=== PATIENT | female | born 1995 | race Caucasian/White ===

== ENCOUNTER 2017-09-07 11:04 | Emergency (ER) | payer OTHER ==
[2017-09-07 11:10] VITALS: TEMP 98.2
--- NOTE | 2017-09-07 11:18 | EDPHY ---
H & P Stated Complaint: left knee pain starting a few days ago, getting worse, no trauma Time Seen by Provider: 09/07/17 11:17 HPI/ROS: HPI: This is a 21-year-old female who presents with Chief Complaint: left knee pain starting a few days ago, getting worse, no trauma Location: Left knee Quality: Pain Duration: Few days Signs and Symptoms: No bleeding, no radiation, no numbness, no weakness, no tingling, no incontinence, + decreased range of motion, + swelling, + pain Timing: Worsening Severity: Moderate Context: Patient is generally healthy, presents with a few days of left knee pain that started medially and then moved to the lateral region and accompanied by worsening swelling. Reports decreased range of motion due to the swelling and pain. Mobility has been difficult and she is using a cane to aid ambulation. Denies any trauma/injury/fall/calf tenderness. Patient reports that her family has bad knees. Denies paresthesias/skin color changes/warmth/ redness. She took Advil prior to arrival. Father is a local utility mechanic supervisor physician at [facility] and has knee immobilizers at home for her to use. Modifying Factors: Above Comment: ROS: see HPI Constitutional: No fever, no chills, no weight loss Eyes: No blurred vision Respiratory: No shortness of breath, no cough Cardiovascular: No chest pain Gastrointestinal: No nausea, no vomiting no diarrhea Genitourinary: No dysuria Extremities: No myalgias Neurologic: No weakness, no numbness Skin: No rashes Hematologic: No bruising, no bleeding MEDICAL/SURGICAL/SOCIAL HISTORY: Medical history: Generally healthy. Does not take any regular medications. Surgical history: left arm ortho sx Social history: Strong family support. CONSTITUTIONAL: Young adult white female, awake and alert, no obvious distress HEENT: Atraumatic and normocephalic, PERRL, EOMI. Tympanic membranes clear. Oropharynx clear, no exudate and moist pink mucosa. Airway patent. No lymphadenopathy. No meningismus. Cardiovascular: Normal S1/S2, regular rate, regular rhythm, without murmur rub or gallop. PULMONARY/CHEST: Symmetrical and nontender. Clear to auscultation bilaterally. Good air movement. No accessory muscle usage. ABDOMEN: Soft, nondistended, nontender, no rebound, no guarding, no peritoneal signs, no masses or organomegaly. No CVAT. EXTREMITIES: 2/2 DP and PT pulses, strength 5/5, left KNEE: Moderate suprapatellar effusion, + medial joint line tenderness and no lateral joint line tenderness, extension to 120, flexion to 90, pain with valgus exam but no pain with varus exam. No pain with anterior drawer or posterior drawer test. no deformities, no patellar hypermobility. no clubbing, no cyanosis or edema. NEUROLOGICAL: no focal neuro deficits. GCS 15. SKIN: Warm and dry, no erythema. no rash. Good capillary refill. Source: Patient Exam Limitations: No limitations - Personal History LMP (Females 10-55): Now Current Tetanus/Diphtheria Vaccine: Unsure Current Tetanus Diphtheria and Acellular Pertussis (TDAP): Unsure - Medical/Surgical History Hx Asthma: No Hx Chronic Respiratory Disease: No Hx Diabetes: No Hx Cardiac Disease: No Hx Renal Disease: No Hx Cirrhosis: No Hx Alcoholism: No Hx HIV/AIDS: No Hx Splenectomy or Spleen Trauma: No Other PMH: left arm ortho sx - Social History Smoking Status: Never smoked Constitutional: Initial Vital Signs Temperature (C) 36.8 C 09/07/17 11:07 Heart Rate 98 09/07/17 11:07 Respiratory Rate 20 09/07/17 11:07 Blood Pressure 136/82 H 09/07/17 11:07 O2 Sat (%) 96 09/07/17 11:07 O2 Delivery Mode Room Air Allergies/Adverse Reactions: No Known Allergies Allergy (Unverified 09/07/17 11:06) Home Medications: Medication Instructions Recorded [place] Carbonate 09/07/17 Microgestin 09/07/17 oxyCODONE/APAP 5/325 [Percocet 1 - 2 tab PO Q4H PRN #12 tab 09/07/17 5/325 (*)] Medical Decision Making - Diagnostics Imaging Results: Imaging Impressions Knee X-Ray 09/07/17 11:20 Impression: [place] knee joint effusion. Procedures: Procedure: Arthrocentesis. After verbal informed consent was obtained explaining the risks including but not limited to infection and bleeding a arthrocentesis was performed on the left knee. The patient was prepped and draped in the usual sterile fashion. The joint was not anesthetized. Approximately 85 mL of the clear yellow synovial fluid was obtained. Culture, Gram stain, cell count, crystal analysis was sent. There were no complications. Clean sterile dressing was applied. The procedure was performed by myself. ED Course/Re-evaluation: Left knee x-ray, and oral medications ordered Given Percocet x, ice pack applied No signs of neurovascular compromise/tenting of skin/compartment syndrome/ extremities and joints examined above and below area of concern and are neurovascularly intact/septic arthritis. X-ray my read shows no signs of fracture/dislocation, + moderate effusion Arthrocentesis performed; culture sent. Patient already has knee immobilizer; given crutches; rice; Ortho follow-up This patient was seen under the supervision of my secondary supervising physician. I evaluated care for this patient independently. Discussed this patient with who did not see the patient. Patient's presentation, labs/ imaging, treatment and plan of care were discussed with secondary supervising physician. Differential Diagnosis: Knee injury while including but not limited to fracture, ACL injury, contusion, muscular strain, and meniscus injury. - Data Points Laboratory Results: 09/07/17 13:00 Synovial Source Pending Synovial Color Pending Synovial Appearance Pending Synovial WBC Pending Synovial RBC Pending Synovial Crystals Pending Medications Given: Discontinued Medications Oxycodone/Acetaminophen (Percocet 5/325) 1 tab PO EDNOW ONE Stop: 09/07/17 11:26 Last Admin: 09/07/17 11:26 Dose: 1 tab Departure - Departure Disposition: Home, Routine, Self-Care Clinical Impression: Effusion of left knee joint, Internal derangement of left knee Condition: Good Instructions: Knee Sprain (ED), Swollen Knee Joint (ED), Knee Immobilizer (ED) Additional Instructions: Keep the dressing dry and in place for 48 hours. After 48 hours, you may remove the dressing; wash the site daily with mild soap and water; then pat dry. Wear knee immobilizer while out of bed and use crutches to assist with ambulation; start with toe-touch weight-bearing and advance as tolerated. Take Tylenol 650 mg every 4 hours and/or Ibuprofen 600 mg every 8 hours with food as needed for pain. Do not use Tylenol and Percocet concomitantly. Apply ice for 30 minutes at a time; 2-3 times per day for the next 1-2 days. Follow up with Orthopedics in 5-7 days at which time they will evaluate and recommend with you if conservative management versus surgery is indicated. The x-rays obtained in the emergency department today demonstrate no evidence of an obvious fracture. Sometimes fractures are not obvious on the initial set of x-rays performed in the ED. For this reason, you should have repeat x-rays performed in 7-10 days if you are having any pain exclude the possibility of an occult fracture. Referrals: Nai Diallo MD [Primary Care Provider] - As per Instructions Karl Falcon MD [Medical Doctor] - As per Instructions Prescriptions: oxyCODONE/APAP 5/325 [Percocet 5/325 (*)] 1 - 2 tab PO Q4H PRN #12 tab PRN Reason: Pain, Severe
[2017-09-07] MEDS ORDERED: OXYCODONE/APAP 5/325 TAB PO ONE (11:25)
[2017-09-07 13:41] VITALS: BP 121/78; PULSE 78; RESP 16; O2SAT 97
== END 2017-09-07 13:38 | disposition home or self-care (01) ==
PROC: 0S9D3ZZ Drainage of Left Knee Joint, Percutaneous Approach (ICD-10-PCS; principal; 2017-09-07)
DX: M23.92 Unspecified internal derangement of left knee (principal); M25.462 Effusion, left knee